=== PATIENT | male | born 1995 | race Asian ===

== ENCOUNTER 2021-04-28 11:53 | Emergency (ER) | payer OTHER ==
--- NOTE | 2021-04-28 12:12 | NUR ---
Patient ambulated to bed 05 with steady/even gait.
--- NOTE | 2021-04-28 12:40 | NUR ---
ASCENCION GREER AT BEDSIDE EVALUATING PATIENT
--- NOTE | 2021-04-28 12:43 | NUR ---
Geothermal System Installer accompanied patient for Rectal Exam.
[2021-04-28] MEDS ORDERED: HYDR-2734 TP (12:45)
[2021-04-28] MEDS ORDERED: MIRABULK PO (12:45)
[2021-04-28] MEDS ORDERED: DOCU-299 PO (12:45)
[2021-04-28 12:52] VITALS: BP 124/73
--- NOTE | 2021-04-28 12:52 | NUR ---
Patient discharged with v/s stable. Written and verbal after care instructions given and explained. Patient alert, oriented and verbalized understanding of instructions. Ambulatory with steady gait. All questions addressed prior to discharge. ID band removed. Patient advised to follow up with PMD. Rx of COLACE, ANUSOL-HC, AND MIRALAX given. Patient educated on indication of medication including possible reaction and side effects. Opportunity to ask questions provided and answered.
== END 2021-04-28 12:52 | disposition home or self-care (01) ==
LOC: MED 11:53
DX: K64.4 Residual hemorrhoidal skin tags (principal); Z79.899 Other long term (current) drug therapy
CPT/HCPCS: 99283